=== PATIENT | female | born 1980 | race Caucasian/White ===

== ENCOUNTER → 2016-12-14 | Outpatient (CLI) | payer BC, OTHER ==
--- NOTE | ~2016-12-14 | US6 ---
[facility] A Service of [facility] & [facility] RADIOLOGY TEXT RESULTS PATIENT: BARAK FRANCIS I LOCATION: [facility]US : 78 UNIT #: [id number] AGE: [address]: Eduard Ga MD SEX: F ORDER DR: [id number] [place] [id number] O MR#: [id number] Acc #: [id number] NAME: BARAK FRANCIS : 1980 SEX: F STUDY DATE/TIME: 12/14/2016 8:15 UNIT: [facility]US ROOM: STUDY DESCRIPTION: US Abdominal Limited Attending Physician: Eduard Ga M.D. Referring Physician: Eduard Ga M.D. Ordering Physician: Eduard Ga M.D. Primary Care Physician: Eduard Ga M.D. MEDICAL IMAGING REPORT This report is preliminary unless electronic signature is present. EXAM Right upper quadrant abdominal ultrasound TECHNIQUE Right upper quadrant abdominal pain for the past 2 months. TECHNIQUE Hung-scale, Doppler imaging right upper quadrant of the abdomen. FINDINGS Visualized portions of pancreas unremarkable. Liver measures 17.2 cm. No liver mass on submitted images. Unremarkable gallbladder. Right kidney measures 11.7 cm. Unremarkable gallbladder. Common duct measures 4-5 mm. IMPRESSION Negative right upper quadrant ultrasound. Dictated by... Christiano Swanson M.D. THIS IS AN ELECTRONICALLY VERIFIED REPORT Christiano Swanson M.D. at 12/15/2016 2:25 PM EED/pcl TD: 12/14/2016 22:01 JOB #: [id number] MEDICAL IMAGING REPORT Page 1 of 1
== END | disposition home or self-care (01) ==
LOC: SGUS 07:53
DX: R10.11 Right upper quadrant pain (principal)
CPT/HCPCS: 76705